=== PATIENT | female | born 1975 | race Caucasian/White ===

== ENCOUNTER 2023-11-14 11:23 | Emergency (ER) | payer MEDICAID ==
[~2023-11-14] VITALS: Ht 161.3 cm; Wt 56.4 kg
[2023-11-14 11:31] VITALS: BP 131/68; PULSE 86; RESP 18; O2SAT 97
[2023-11-14 12:22] VITALS: TEMP 97.9
== END 2023-11-14 12:25 | disposition home or self-care (01) ==
LOC: ER 11:24
DX: F10.10 Alcohol abuse, uncomplicated (principal); Y90.9 Presence of alcohol in blood, level not specified
CPT/HCPCS: 99281